=== PATIENT | female | born 1990 | race Two or more races ===

== ENCOUNTER 2019-12-05 02:49 | Inpatient (IN) | payer OTHER ==
[~2019-12-05] VITALS: Ht 157.5 cm; Wt 60.5 kg
[2019-12-05 03:00] VITALS: BP 121/84
[2019-12-05] MEDS ORDERED: D5%-LACTATED RINGERS 1,000 ML IV SCH (03:57)
[2019-12-05] MEDS ORDERED: LACTATED RINGERS 1,000 ML IV SCH ×2 (03:57→05:31)
[2019-12-05] MEDS ORDERED: OXYTOCIN 30U/ 0.9% NaCL 500ML 500 ML IV ONE (03:57)
[2019-12-05] MEDS ORDERED: NEWBORN KIT ONE (03:58)
[2019-12-05] MEDS ORDERED: OXYTOCIN 30U/ 0.9% NaCL 500ML 500 ML ONE ×2 (03:58→06:57)
[2019-12-05] MEDS ORDERED: TERBUTALINE 1 MG/ML, 1ML IVPush PRN (04:00)
[2019-12-05] MEDS ORDERED: METOCLOPRAMIDE 5 MG/ML, 2ML IVPush PRN (04:00)
[2019-12-05] MEDS ORDERED: SODIUM CITRATE/CITRIC ACID 30 ML UDC PO PRN (04:00)
[2019-12-05] MEDS ORDERED: FENTANYL PF 100 MCG/2ML IVPush PRN (04:00)
[2019-12-05] MEDS ORDERED: TERBUTALINE 1 MG/ML, 1ML SQ PRN (04:00)
[2019-12-05] MEDS ORDERED: CALCIUM CARBONATE 500 MG TAB.CHEW PO PRN (04:00)
[2019-12-05] MEDS ORDERED: FENTANYL PF 100 MCG/2ML IV PRN (04:00)
[2019-12-05] MEDS ORDERED: ONDANSETRON 2MG/ML, 2ML IVPush PRN (04:00)
[2019-12-05 04:46] LABS: BASOPHILS # (AUTO) 0.03 x10^3/uL (0-0.1); BASOPHILS % (AUTO) 0 % (0-1); EOSINOPHILS # (AUTO) 0.14 x10^3/uL (0-0.4); EOSINOPHILS % (AUTO) 2 % (1-7); LYMPHOCYTES # (AUTO) 1.64 x10^3/uL (1-3.4); LYMPHOCYTES % (AUTO) 18 % (22-44); MD NO; MEAN CORPUSCULAR HEMOGLOBIN 28.1 pg (27.0-34.8); MEAN CORPUSCULAR HGB CONC 32.2 g/dL (32.4-35.8); MEAN CORPUSCULAR VOLUME 87.1 fL (80-100); MEAN PLATELET VOLUME 9.1 fL (7.4-10.4); MONOCYTES # (AUTO) 0.91 x10^3/uL (0.2-0.8); MONOCYTES % (AUTO) 10 % (2-9); NEUTROPHILS # (AUTO) 6.36 x10^3/uL (1.8-6.8); NEUTROPHILS % (AUTO) 70 % (42-75); PLATELET COUNT 248 x10^3/uL (130-400); RED BLOOD COUNT 3.99 x10^6/uL (3.82-5.3)
[2019-12-05] MEDS ORDERED: FENTANYL PF 100 MCG/2ML ONE (04:53)
[2019-12-05] MEDS ORDERED: FENTANYL/BUPIV./NS/PF 250 ML EPIDCONT ONE ×2 (05:28→05:35)
[2019-12-05] MEDS ORDERED: FENTANYL/BUPIV./NS/PF 250 ML EPIDCONT SCH (05:31)
[2019-12-05] MEDS ORDERED: BUPIVACAINE 0.25% ONE ×2 (05:32→05:35)
[2019-12-05] MEDS ORDERED: NALOXONE 0.4 MG/ML, 1ML IVPush PRN (06:00)
[2019-12-05] MEDS ORDERED: FENTANYL PF 500 MCG, BUPIVACAINE/PF 0.5%, 30ML 62.5 ML in SODIUM CHLORIDE 0.9% 177.5 ML EPIDCONT SCH (06:00)
[2019-12-05] MEDS ORDERED: LACTATED RINGERS 1,000 ML IVBOLUS PRN (06:00)
[2019-12-05] MEDS ORDERED: EPHEDRINE 50 MG/ML, 1ML IVPush PRN (06:00)
[2019-12-05] MEDS ORDERED: OXYTOCIN 30U/ 0.9% NaCL 500ML 500 ML IV SCH (07:27)
[2019-12-05] MEDS ORDERED: METHYLERGONOVINE 0.2 MG/ML IM PRN (07:30)
[2019-12-05] MEDS ORDERED: MISOPROSTOL 200 MCG TABLET PR PRN (07:30)
[2019-12-05] MEDS ORDERED: SIMETHICONE 80 MG CHEW TAB PO PRN (07:30)
[2019-12-05] MEDS ORDERED: OXYcodone/APAP 5/325MG TABLET PO PRN (07:30)
[2019-12-05 08:45] VITALS: BP 94/56
[2019-12-05] MEDS: IBUPROFEN 600 MG TABLET PO PRN ×2 (13:45→20:12)
[2019-12-05] MEDS: PRENATAL VIT/IRON/FA 1 EACH TABLET PO SCH (13:46)
[2019-12-05] MEDS: DOCUSATE 100 MG CAPSULE PO PRN (13:46)
[2019-12-05 14:00] VITALS: BP 94/55
[2019-12-05 15:45] LABS: BASOPHILS # (AUTO) 0.02 x10^3/uL (0-0.1); BASOPHILS % (AUTO) 0 % (0-1); EOSINOPHILS # (AUTO) 0.02 x10^3/uL (0-0.4); EOSINOPHILS % (AUTO) 0 % (1-7); LYMPHOCYTES # (AUTO) 1.14 x10^3/uL (1-3.4); LYMPHOCYTES % (AUTO) 7 % (22-44); MD SCAN; MEAN CORPUSCULAR HEMOGLOBIN 28.3 pg (27.0-34.8); MEAN CORPUSCULAR HGB CONC 32.3 g/dL (32.4-35.8); MEAN CORPUSCULAR VOLUME 87.6 fL (80-100); MEAN PLATELET VOLUME 9.1 fL (7.4-10.4); MONOCYTES # (AUTO) 1.13 x10^3/uL (0.2-0.8); MONOCYTES % (AUTO) 7 % (2-9); NEUTROPHILS # (AUTO) 14.69 x10^3/uL (1.8-6.8); NEUTROPHILS % (AUTO) 86 % (42-75); PLATELET COUNT 186 x10^3/uL (130-400); RED BLOOD COUNT 3.82 x10^6/uL (3.82-5.3); RED CELL DISTRIBUTION WIDTH 16.1 % (9.6-15.2)
[2019-12-05 19:45] VITALS: BP 113/66
[2019-12-06 00:10] VITALS: BP 101/63
[2019-12-06] MEDS: IBUPROFEN 600 MG TABLET PO PRN ×2 (02:21→08:39)
[2019-12-06 04:35] VITALS: BP 93/52
[2019-12-06 07:15] VITALS: BP 106/71
[2019-12-06] MEDS: PRENATAL VIT/IRON/FA 1 EACH TABLET PO SCH (08:39)
[2019-12-06] MEDS: DOCUSATE 100 MG CAPSULE PO PRN (08:39)
[2019-12-06] MEDS ORDERED: PREN-53 PO (12:16)
[2019-12-06] MEDS ORDERED: IBUP-1222 PO (12:17)
== END 2019-12-06 14:10 | disposition home or self-care (01) | DRG 807 ==
LOC: LDOP 02:49 → LDIP 04:03 → 2NW 08:30
PROVIDERS: ADMIT Student in an Organized Health Care Education/Training Program; ATTEND Student in an Organized Health Care Education/Training Program
PROC: 10E0XZZ Delivery of Products of Conception, External Approach (ICD-10-PCS; principal; 2019-12-06)
DX: O80 Encounter for full-term uncomplicated delivery (principal); Z37.0 Single live birth; Z3A.39 39 weeks gestation of pregnancy; Z88.8 Allergy status to other drugs, medicaments and biological substances
CPT/HCPCS: 36415; 85025; 86592; 86850; 86900; G0378; J3010; J3490; J2590; J7120